=== PATIENT | female | born 1965 | race Caucasian/White ===

== ENCOUNTER 2018-06-26 12:04 | Emergency (ER) | payer OTHER ==
--- NOTE | 2018-06-26 12:21 | EDPHY ---
H & P Stated Complaint: fall from ladder, lip lac Source: Patient - Personal History Current Tetanus/Diphtheria Vaccine: Unsure Current Tetanus Diphtheria and Acellular Pertussis (TDAP): Unsure - Medical/Surgical History Hx Asthma: No Hx Chronic Respiratory Disease: No Hx Diabetes: No Hx Cardiac Disease: No Hx Renal Disease: No Hx Cirrhosis: No Hx Alcoholism: No Hx HIV/AIDS: No Hx Splenectomy or Spleen Trauma: No Other PMH: asthma - Social History Smoking Status: Never smoked Time Seen by Provider: 06/26/18 12:13 HPI/ROS: CHIEF COMPLAINT: Fall from ladder, jaw pain, left knee pain, lip laceration HISTORY OF PRESENT ILLNESS: The patient presents to the ED after she fell from a ladder 8 ft landing on her chin and left knee. She presents to the ED with complaints of jaw pain, a complex going through lip laceration left knee pain. The patient did not lose consciousness. She did not strike her head. The patient denies additional a acute complaints. She is not anticoagulated. REVIEW OF SYSTEMS: A comprehensive 10 point review of systems is otherwise negative aside from elements mentioned in the history of present illness. (Kenny Em) - Physical Exam Exam: General Appearance: Alert, no distress Head: Atraumatic Eyes: Pupils equal, round, reactive ENT, Mouth: Tenderness to palpation along the mandible bilaterally over the condyle, through and through lip laceration complicated Neck: Nontender, trachea midline Respiratory: No chest wall tender, no subcutaneous air, lungs clear bilaterally Cardiovascular: Regular rate and rhythm Abdomen: Abdomen is soft and nontender, pelvis stable Skin: No lacerations, No abrasion Back: No midline T/L/S pain Extremities: Tenderness to palpation over left patella Neurological: A&Ox3, normal motor function, normal sensory exam (Kenny Em) Constitutional: Initial Vital Signs Temperature (C) 36.7 C 06/26/18 12:07 Heart Rate 65 06/26/18 12:07 Respiratory Rate 16 06/26/18 12:07 Blood Pressure 147/92 H 06/26/18 12:07 O2 Sat (%) 92 06/26/18 12:07 O2 Delivery Mode Room Air Allergies/Adverse Reactions: celery Allergy (Mild, Verified 06/26/18 12:06) POS SKIN ALLERGY TEST Home Medications: Medication Instructions Recorded Lexapro 06/26/18 Medical Decision Making - Diagnostics Imaging Results: Imaging Impressions Knee X-Ray 06/26/18 12:30 Impression: Negative. No acute fracture or effusion. Procedures: Procedure: Laceration repair. I was requested by Dr. Em to perform wound closure I explained the indications, risks and benefits for both laceration repair and anesthetic administration. Verbal consent was obtained from the patient. The laceration on the lower lip was anesthetized using 0.5% bupivicaine with epinephrine. After anesthetic administered the patient was observed for a period of time and had no apparent adverse effects. The wound was cleaned, prepped, draped in normal sterile fashion and explored to its base. No foreign body seen, no foreign bodies palpated. The wound was repaired with 2 simple interrupted 6 0 Vicryl sutures in 14 simple interrupted 6 0 Prolene sutures paying careful attention to realign anatomic landmarks. . The wound repair was complex. The procedure was performed by myself. Patient has been informed that scarring will occur, although efforts have been made to minimize this. ( Margarito Woodard) ED Course/Re-evaluation: The patient presents emergency department with a lip laceration following a fall from the ladder. The patient arrives with a GCS of 15. She is neurologically intact. I have cleared the patient's cervical spine via nexus criteria. The patient did have some mild jaw discomfort. She was offered a maxillofacial CT however prefers to decline the study and instead follow up with her dentist tomorrow for Panorex. She does understand that we have not excluded the possibility of a jaw fracture. The patient's laceration was repaired by the physician assistant warehouse manager under my supervision. Additionally the patient had complaints of left knee pain. The patient will be discharged from the emergency department at 2:00 p.m.. Plans for return to ED in 5 days for suture removal. (Kenny Em) Differential Diagnosis: Differential diagnosis considered includes facial bone fracture, facial laceration, knee fracture (Kenny Em) - Data Points Medications Given: Discontinued Medications Ibuprofen (Motrin) 600 mg PO EDNOW ONE Stop: 06/26/18 12:30 Last Admin: 06/26/18 12:32 Dose: 600 mg Departure - Departure Disposition: Home, Routine, Self-Care Clinical Impression: Facial laceration Condition: Good Instructions: Laceration (DC) Additional Instructions: 1. Please follow-up with your dentist tomorrow for any ongoing dental pain. You were offered CT scan of the facial bones today and declined. Further imaging may be indicated if you continue to have ongoing pain. 2. Take Ibuprofen or Motrin 600 mg by mouth three times a day. 3. Return to the ED for any increasing pain, swelling or redness. 4. Your knee x-ray demonstrates no evidence of an obvious fracture. 5. Return to the emergency department in 5 days for suture removal. Referrals: Lynnette Barboza MD [Primary Care Provider] - As per Instructions
[2018-06-26] MEDS ORDERED: IBUPROFEN 600 MG TAB PO ONE (12:29)
[2018-06-26 13:46] VITALS: BP 122/80
== END 2018-06-26 14:11 | disposition home or self-care (01) ==
PROC: 0CQ1XZZ Repair Lower Lip, External Approach (ICD-10-PCS; principal; 2018-06-26)
DX: S01.511A Laceration without foreign body of lip, initial encounter (principal); M25.562 Pain in left knee; R68.84 Jaw pain; W11.XXXA Fall on and from ladder, initial encounter; Y92.9 Unspecified place or not applicable; Y93.9 Activity, unspecified; Y99.9 Unspecified external cause status